=== PATIENT | female | born 1945 | race Caucasian/White ===

== ENCOUNTER 2017-04-17 23:05 | Inpatient (IN) | payer OTHER ==
[~2017-04-17] VITALS: Ht 170.2 cm; Wt 134.7 kg
--- NOTE | 2017-04-17 23:05 | NUR ---
BIBA TO ER BED 5
--- NOTE | 2017-04-17 23:10 | NUR ---
71 Y/O F BIBA FROM [facility] W/C/O AL SINCE THIS MORNING. BS 225 IN ROUTE. MED HX HTN, HYPERLIPEDEMIA, SEIZURES. PT ONLY RESPONSIVE TO PAINFUL STIMULI. SEIZURE PADS PUT IN PLACE. PT ARRIVED TO CLAREMONT WITH IV 22G TO LEFT AC. GAIT IS UNABLE TO ACCESS AT THE MOMENT. PT SKIN IS INTACT, WARM/DRY. ROX WATSON MADE AWARE. Addendum: 04/17/17 at 2352 by MEDND 71 Y/O F BIBA FROM [facility] W/C/O AL SINCE THIS MORNING. BS 225 IN ROUTE. MED HX HTN, HYPERLIPEDEMIA, SEIZURES. PT ONLY RESPONSIVE TO PAINFUL STIMULI. SEIZURE PADS PUT IN PLACE. PT ARRIVED TO CLAREMONT WITH IV 22G TO LEFT AC. GAIT IS UNABLE TO ACCESS AT THE MOMENT. PT SKIN IS INTACT, WARM/DRY. ROX WATSON MADE AWARE. [facility] ALSO STATES PT RECIEVED FLU VACCINE YESTERDAY.
[2017-04-17 23:11] VITALS: BP 109/60
--- NOTE | 2017-04-17 23:30 | NUR ---
# 16 FR Julien catheter with 10 ml utilizing sterile technique. Immediate return of 75 ml CLOUDY, YELLOW urine noted. Bedside drainage bag placed below level of bladder. Urine sample collected and sent to lab. Pt tolerated procedure WELL.
[2017-04-17] MEDS ORDERED: NACL 0.9% 500 ML IV ONE (23:50)
[2017-04-18 00:09] LABS: HEMATOCRIT 30.3 % (36-48); HEMOGLOBIN 9.6 g/dL (12.0-16.0); MEAN CORPUSCULAR HEMOGLOBIN 30 pg (27-31); MEAN CORPUSCULAR HGB CONC 32 g/dL (33-37); MEAN CORPUSCULAR VOLUME 93 fL (80-94); PLATELET COUNT (AUTO) 178 K/uL (140-450); RED BLOOD CELL COUNT(AUTO) 3.26 MIL/uL (4.20-5.40); RED CELL DISTRIBUTION WIDTH 13.2 % (11.6-13.7); WHITE BLOOD COUNT (AUTO) 14.5 K/uL (4.8-10.8)
[2017-04-18 00:16] LABS: APPEARANCE,URINE CLOUDY (CLEAR); BILIRUBIN,URINE NEGATIVE (NEGATIVE); BLOOD, URINE 1+ (NEGATIVE); COLOR,URINE YELLOW (YELLOW); LEUKOCYTE ESTERASE ,URINE 3+ (NEGATIVE); NITRITE, URINE NEGATIVE (NEGATIVE); PH,URINE 5.5 (5.0-9.0); UGLUCOSE NEGATIVE (NEGATIVE)
[2017-04-18 00:21] LABS: ANION GAP 12.3 (8-16); CARBON DIOXIDE 28.5 mmol/L (21-32); CHLORIDE 102 mmol/L (98-107); GLUCOSE 256 mg/dL (74-106); POTASSIUM 3.8 mmol/L (3.5-5.1); SODIUM SERUM 139 mmol/L (136-145); UREA NITROGEN, BLOOD 46 mg/dL (7-18)
[2017-04-18 00:25] LABS: LYMPHOCYTES % (MANUAL) 7 % (20-46); MONOCYTES % (MANUAL) 4 % (5-12)
[2017-04-18 00:29] LABS: PROTHROMBIN TIME 10.8 secs (10.8-13.4)
[2017-04-18 00:33] LABS: RBC,URINE 3-10 (FEW) /HPF (0-5); WBC,URINE TOO MANY TO COUNT /HPF (0-5)
[2017-04-18 00:34] LABS: HYALINE CASTS, URINE 0-10 /LPF (None Seen)
[2017-04-18 00:38] LABS: ASPARTATE AMINOTRANSFERASE 20 U/L (15-37); TOTAL BILIRUBIN 0.4 mg/dL (0.0-1.0)
[2017-04-18] MEDS ORDERED: LEVOFLOXACIN 500 MG/D5W PREMIX 100 ML IV ONE (01:05)
--- NOTE | 2017-04-18 02:30 | NUR ---
SON IN LAW IS AT BEDSIDE STATES PT FELL WHILE AT HOME 4 WEEKS AGO AND HIT HER HEAD. PT WAS PLACED AT [facility] FOR REHAB BUT OF YESTERDAY PT WAS TALKING NORMAL. SON IN LAW STATES SINCE HER FALL SHE HAS BEEN HESITANT TO WALK EVER SINCE FALL.
[2017-04-18] MEDS ORDERED: FURO-570 PO (03:34)
[2017-04-18] MEDS ORDERED: ASPI81CT89 PO (03:34)
[2017-04-18] MEDS ORDERED: AMLO10TA PO (03:34)
[2017-04-18] MEDS ORDERED: LACO100T PO (03:34)
[2017-04-18] MEDS ORDERED: LIP80 PO (03:34)
[2017-04-18] MEDS ORDERED: LACT1.4C PO (03:34)
[2017-04-18] MEDS ORDERED: MIC5 PO (03:34)
[2017-04-18] MEDS ORDERED: METF1TAB34 PO (03:34)
[2017-04-18] MEDS ORDERED: [UNRECOGNIZED DRUG - CODE] OP (03:34)
[2017-04-18] MEDS ORDERED: METO25TE2 PO (03:34)
[2017-04-18] MEDS ORDERED: BRIM5SOL3 OP (03:34)
[2017-04-18] MEDS ORDERED: POTA10TE30 PO (03:34)
[2017-04-18] MEDS ORDERED: ATEN50TA8 PO (03:34)
[2017-04-18] MEDS ORDERED: XALOS OP (03:34)
[2017-04-18] MEDS ORDERED: ZET10 PO (03:34)
[2017-04-18] MEDS ORDERED: LEVE1000 PO (03:34)
[2017-04-18] MEDS ORDERED: SITA100T8 PO (03:34)
[2017-04-18] MEDS ORDERED: CLIN150C1 PO (03:34)
[2017-04-18] MEDS ORDERED: DORZ10SO3 OP (03:34)
[2017-04-18] MEDS ORDERED: ALIS300T PO (03:34)
[2017-04-18] MEDS ORDERED: LEVO750T2 PO (03:34)
[2017-04-18] MEDS ORDERED: HYDR1TAB73 PO (03:34)
[2017-04-18] MEDS ORDERED: GABA300C PO (03:34)
--- NOTE | 2017-04-18 04:29 | NUR ---
Patient will be admitted to care of DR NEAL. Admited to TELE. Will go to room. Belongings list completed. Report to XENA MCKEON.
[2017-04-18] MEDS ORDERED: NACL 0.9% 1,000 ML IV SCH (04:33)
[2017-04-18 04:35] VITALS: BP 111/41
[2017-04-18] MEDS ORDERED: MORPHINE SULFATE 2 MG/ML SYR IVP PRN (04:35)
[2017-04-18] MEDS ORDERED: HYDROcodone/APAP 7.5/325 MG 1 TAB PO PRN (04:35)
[2017-04-18] MEDS ORDERED: ONDANSETRON 4 MG/2 ML VIAL IM/IVP PRN (04:35)
[2017-04-18] MEDS ORDERED: DOCUSATE SODIUM 100 MG GELCAP PO PRN (04:35)
--- NOTE | 2017-04-18 04:35 | NUR ---
PATIENT ADMITTED TO THE UNIT FROM ER. PATIENT BROUGHT IN BY MARS. AOX2. PATIENT RESPONSIVE TO PAIN STIMULI. SEIZURE GLASSES AND PRECAUTIONS IN PLACE. PT ON O2 2L VIA NC. SKIN IS INTACT. IV SITE NOTED ON LEFT UPPER CHEST AND LEFT ARM. MODI CATHETER IN PLACE. WILL CONTINUE TO MONITOR.
[2017-04-18] MEDS ORDERED: MECLIZINE 25 MG TAB PO PRN (04:40)
[2017-04-18] MEDS ORDERED: DEXTROSE 50% 50 ML SYR IVP PRN (04:55)
[2017-04-18 05:21] LABS: BARBITURATE, URINE NEG. ng/ml (NEG <=200); BENZODIAZEPINE, URINE NEG. ng/mL (NEG <=200); CANNABINOID, URINE NEG. ng/mL (NEG <=50); COCAINE, URINE NEG. ng/mL (NEG <=300); OPIATE, URINE NEG. ng/mL (NEG <=2000); PHENCYCLIDINE SCREEN,URINE NEG. ng/mL (NEG <=25)
[2017-04-18 05:30] LABS: CHOL/HDL RATIO 2.4 (1-4.5); FREE T4 (FREE THYROXINE) 1.09 ng/dL (0.76-1.46); MAGNESIUM 1.7 mg/dL (1.8-2.4); PHOSPHORUS 4.1 mg/dL (2.5-4.9); THYROID STIMULATING HORMONE 1.52 uIU/mL (0.34-3.74)
[2017-04-18] MEDS: BLOOD GLUCOSE MONITORING 1 DEV DEV FS SCH ×4 (06:42→20:12)
[2017-04-18] MEDS: INSULIN LISPRO SLIDING SCALE 100 UNITS/ML VIAL SUBQ PRN (06:42)
[2017-04-18] MEDS: ACETAMINOPHEN 325 MG TAB PO PRN ×2 (06:50→13:26)
[2017-04-18] MEDS ORDERED: DEXT 5% / NACL 0.45% 1,000 ML IV SCH (07:30)
--- NOTE | 2017-04-18 07:32 | NUR ---
REPORT RECEIVED FROM GAS ENGINE PERFORMANCE ENGINEER, PT SLEEPING QUIETLY IN NAD WEARING DARK SZ GLASSES, RESP EVEN UNLABORED ON 2L O2, PT AROUSES TO VOICE, NO C/O PAIN OR DISCOMFORT AT THIS TIME, PLAN OF CARE REVIEWED, INITIAL ASSESSMENT DONE, SZ PRECAUTION IN PLACE, CALL LUQUE WITHIN REACH, SIDE RAILS UP, BED LOCKED IN LOW POSITION, WILL CONTINUE TO MONITOR.
--- NOTE | 2017-04-18 07:38 | NUR ---
PATIENT REPORT GIVEN TO MORNING NURSE. PATIENT IN STABLE CONDITION
[2017-04-18 08:00] VITALS: BP 98/50
--- NOTE | 2017-04-18 08:02 | NUR ---
MD AT BEDSIDE, PT NOW NPO X MEDS. BREAKFAST TRAY REMOVED.
--- NOTE | 2017-04-18 08:18 | NUR ---
US AT BEDSIDE.
[2017-04-18] MEDS: DEXT 5% /NACL 0.9% 1,000 ML IV SCH ×3 (09:05→20:06)
[2017-04-18] MEDS: LACTOBACILLUS RHAMNOSUS GG 1 EACH CAP PO SCH (09:05)
--- NOTE | 2017-04-18 09:13 | NUR ---
DR TESFAYE AT BEDSIDE FOR EVAL, PT SLEEPY BUT AROUSABLE, SPEAKS SLOWLY, RESPONDS APPROPRIATELY TO QUESTIONS, IVF INFUSING, IV SITE CLEAR, IFV CHANGED TO D5NS. WILL CONTINUE TO MONITOR.
[2017-04-18] MEDS ORDERED: levETIRAcetam 1,000 MG in NACL 0.9% 100 ML IV SCH (10:00)
[2017-04-18] MEDS ORDERED: ASPIRIN 81 MG TAB.CHEW PO SCH (10:18)
[2017-04-18] MEDS ORDERED: ATORVASTATIN 80 MG TAB PO SCH (10:19)
[2017-04-18] MEDS ORDERED: EZETIMIBE 10 MG TAB PO SCH (10:21)
[2017-04-18 12:00] VITALS: BP 132/58
--- NOTE | 2017-04-18 13:20 | NUR ---
GOD SON AT BEDSIDE VISITING, HOME MEDICATION BROUGHT IN, WILL TURN IN TO PHARMACY
[2017-04-18] MEDS: GABAPENTIN 300 MG CAP PO SCH ×2 (13:27→16:43)
--- NOTE | 2017-04-18 13:31 | NUR ---
DUE MEDS GIVEN, PRN TYLENOL GIVEN FOR TEMP 100.2, PT TAKES PILLS WELL, NO COUGHING OR TROUBLE SWALLOWING NOTED, MD AWARE OF TEMP 100.2. PT REMAINS ON DECORATOR STREET AND BUILDING, RESP EVEN UNLABORED, CAMILLA CONTINUE TO MONTIOR.
[2017-04-18] MEDS ORDERED: NON-FORMULARY ITEM (Lacosamide (Vimpat) 100 MG) PO SCH (13:40)
--- NOTE | 2017-04-18 14:07 | NUR ---
04/18/17 RD INITIAL ASSESSMENT COMPLETED PLEASE REFER TO NUTRITION ASSESSMENT UNDER CARE ACTIVITY FOR ESTIMATED NUTRITIONAL NEEDS. 1. WHEN MEDICALLY FEASIBLE, INITIATE PO DIET - ADVANCE TOLERATED TO 75G CONSISTENT CARBOHYDRATE DIET 2. RD TO FOLLOW-UP 2-3 DAYS, HIGH RISK VEENA MORENO, LOPEZ
[2017-04-18] MEDS ORDERED: HYDR1TAB PO (14:20)
[2017-04-18] MEDS ORDERED: MAG SULF 2000 MG/WATER PREMIX 50 ML IV SCH (15:00)
--- NOTE | 2017-04-18 15:30 | NUR ---
BM X1, SOFT STOOL, PERICARE DONE, LINEN CHANGED, GOWN CHANGED, POSITION CHANGED, PT RAFFAELE WELL, WILL CONTINUE TO MONITOR.
[2017-04-18 16:00] VITALS: BP 110/56
--- NOTE | 2017-04-18 16:40 | NUR ---
BLOOD SUGAR 132, NO INSULIN NEEDED, TEMP 100.0, TYLENOL GIVEN AT 1326, ICE PACK APPLIED TO UNDER ARMS A THIS TIME, PT SLEEPING BUT AROUSES EASILY TO VOICE, RAFFAELE DUE MEDS PO WITHOUT PROBLEM, DENIES PAIN OR DISCOMFORT, WILL CONTINUE TO MONITOR.
[2017-04-18] MEDS: FERROUS SULFATE 325 MG TABEC PO SCH (16:43)
[2017-04-18] MEDS ORDERED: BRIMONIDINE TARTRATE OP SCH (17:00)
[2017-04-18] MEDS: ALPHAGAN 0.1% OP SCH (17:31)
[2017-04-18] MEDS: EYE OP SCH (17:31)
--- NOTE | 2017-04-18 18:15 | NUR ---
PT RESTING QUIETLY IN NAD, RESP EVEN UNLABORED ON 2L NC, SKIN WARM DRY COLOR WNL, PT DENIES ANY PAIN OR DISCOMFORT, MODI INTACT, DRAINING WELL, IVF INFUSING TO 22G LEFT UPPER CHEST, PT REMAINS ON TELE, SZ PRECAUTIONS IN PLACE, CALL LUQUE WITHIN REACH, SIDE RAILS UP X2, BED LOCKED IN LOW POSITION, WILL CONTINUE TO MONITOR.
--- NOTE | 2017-04-18 19:24 | NUR ---
REPORT GIVEN TO FREIGHT CAR INSPECTOR NURSE. PATIENT IN STABLE CONDITION.
--- NOTE | 2017-04-18 19:25 | NUR ---
RECEIVED PATIENT REPORT AT BEDSIDE FROM MORNING NURSE. PATIENT IS ASLEEP IN BED. NO SIGNS AND SYMPTOMS OF DISTRESS NOTED. SEIZURE GLASSES AND SEIZURE PRECAUTION PADS IN PLACE. PATIENT ON O2 2L VIA NC. PATIENT AROUSES TO LIGHT PAIN. MODI CATHETER IN PLACE. BED IN LOWEST POSITION, SIDE RAILS UP AND CALL LUQUE WITHIN REACH, WILL CONTINUE TO MONITOR.
[2017-04-18 20:00] VITALS: BP 131/65
[2017-04-18] MEDS: levETIRAcetam 1,000 MG in NACL 0.9% 100 ML IV SCH (20:34)
[2017-04-18] MEDS: LATANOPROST 0.005% OP 2.5 ML BTL OP SCH (20:41)
[2017-04-18] MEDS: TIMOLOL OP SCH (20:41)
[2017-04-18] MEDS: DORZOLAMIDE OP SCH (20:41)
[2017-04-18] MEDS: LACOSAMIDE 100 MG TAB PO SCH (21:00)
[2017-04-18] MEDS ORDERED: NON-FORMULARY ITEM (Dorzolamide HCl/Timolol Maleat (Cosopt Eye Drops) 1 DROP) OP SCH (21:00)
--- NOTE | 2017-04-18 21:00 | NUR ---
MEDICATION LACOSAMIDE NOT GIVEN AT 2100. MEDICATION NOT AVAILABLE, EQUIPMENT RECORDS SUPERVISOR NOTIFIED.
--- NOTE | 2017-04-18 22:00 | NUR ---
CHECKED ON PATIENT, PATIENT IS ASLEEP IN BED. NO SIGNS AND SYMPTOMS OF DISTRESS NOTED. AROUSABLE TO LIGHT PAIN. BREATHE EVEN AND UNLABORED. BED IN LOWEST POSITION, SIDE RAILS UP AND CALL LIGHT WITHIN REACH.
[2017-04-19] VITALS (9 sets, daily range): BP systolic 81–123; BP diastolic 38–69
[2017-04-19] MEDS: DEXT 5% /NACL 0.9% 1,000 ML IV SCH (01:21)
--- NOTE | 2017-04-19 03:00 | NUR ---
CHECKED ON PATIENTS CATHETER. NOTICED THAT THERE WAS 75ML URINE IN THE BAG. NOTIFIED DR. RODRIGUEZ, ORDERS RECEIVED.
--- NOTE | 2017-04-19 04:02 | NUR ---
BLADDER SCAN DONE. SHOWED URINE VOLUME OF 52ML. NOTIFIED DR. RODRIGUEZ
[2017-04-19] MEDS: levETIRAcetam 1,000 MG in NACL 0.9% 100 ML IV SCH ×2 (04:21→22:15)
[2017-04-19] MEDS: ACETAMINOPHEN 325 MG TAB PO PRN ×3 (04:24→16:17)
[2017-04-19 06:03] LABS: HEMATOCRIT 23.9 % (36-48); HEMOGLOBIN 7.8 g/dL (12.0-16.0); MEAN CORPUSCULAR HEMOGLOBIN 31 pg (27-31); MEAN CORPUSCULAR HGB CONC 33 g/dL (33-37); MEAN CORPUSCULAR VOLUME 94 fL (80-94); PLATELET COUNT (AUTO) 148 K/uL (140-450); RED BLOOD CELL COUNT(AUTO) 2.55 MIL/uL (4.20-5.40); RED CELL DISTRIBUTION WIDTH 13.2 % (11.6-13.7); WHITE BLOOD COUNT (AUTO) 11.2 K/uL (4.8-10.8)
[2017-04-19 06:15] LABS: T4 (THYROXINE) 7.1 ug/dL (4.5-12.0)
[2017-04-19] MEDS: INSULIN LISPRO SLIDING SCALE 100 UNITS/ML VIAL SUBQ PRN ×2 (06:30→13:13)
[2017-04-19] MEDS: BLOOD GLUCOSE MONITORING 1 DEV DEV FS SCH ×4 (06:31→21:00)
[2017-04-19 06:48] LABS: ANION GAP 13.9 (8-16); CARBON DIOXIDE 24.7 mmol/L (21-32); CHLORIDE 106 mmol/L (98-107); CREATININE 2.7 mg/dL (0.6-1.3); GLUCOSE 233 mg/dL (74-106); POTASSIUM 3.6 mmol/L (3.5-5.1); SODIUM SERUM 141 mmol/L (136-145); UREA NITROGEN, BLOOD 52 mg/dL (7-18)
[2017-04-19 07:17] LABS: MAGNESIUM 2.2 mg/dL (1.8-2.4); PHOSPHORUS 3.8 mg/dL (2.5-4.9)
--- NOTE | 2017-04-19 07:25 | NUR ---
PATIENT REPORT GIVEN TO MORNING NURSE. PATIENT IN STABLE CONDITION
--- NOTE | 2017-04-19 07:26 | NUR ---
REPORT RECEIVED FROM BURLING AND JOINING SUPERVISOR NURSE, PT RESTING QUIETLY IN NAD, RESP EVEN UNLABORED ON 2L NC O2, SPEAKS CLEARLY, ORIENTED TO HERSELF ONLY, DENIES PAIN OR DISCOMFORT, MODI DRAINING YELLOW URINE, SLIGHT TREMORS NOTED IN UPPER EXT, PT STATES "I HAVE THE SHIVERS", NO SZ ACTIVITY NOTED, PLAN OF CARE REVIEWED, NO IMMEDIATE NEEDS IDENTIFIED, DR TESFAYE MADE AWARE OF DECREASED URINE OUT PUT OVER NIGTH AND ELEVATED BLOOD SUGAR 231 THIS AM AND PT IS RECEIVING D5NS AT 175ML/HR, ORDER TO BE CHANGED PER DR TESFAYE. PT REMAINS ON VISUAL BASIC .NET DEVELOPER, SZ PRECAUTIONS IN PLACE, CALL LUQUE WITHIN REACH, SIDE RAILS UP X2, BED LOCKED IN LOW POSITION.
[2017-04-19 07:52] LABS: LYMPHOCYTES % (MANUAL) 11 % (20-46); MONOCYTES % (MANUAL) 6 % (5-12)
[2017-04-19] MEDS: VALSARTAN PO SCH (08:30)
[2017-04-19] MEDS: [UNRECOGNIZED DRUG - OTHER] PO SCH (08:30)
[2017-04-19] MEDS: FUROSEMIDE 40 MG TAB PO SCH (08:31)
[2017-04-19] MEDS: POTASSIUM CHLORIDE 10 MEQ TABER PO SCH (08:31)
[2017-04-19] MEDS: FERROUS SULFATE 325 MG TABEC PO SCH ×2 (08:31→16:16)
[2017-04-19] MEDS: ATORVASTATIN 80 MG TAB PO SCH (08:31)
[2017-04-19] MEDS: LACTOBACILLUS RHAMNOSUS GG 1 EACH CAP PO SCH (08:31)
[2017-04-19] MEDS: ASPIRIN 81 MG TAB.CHEW PO SCH (08:32)
[2017-04-19] MEDS: EZETIMIBE 10 MG TAB PO SCH (08:32)
[2017-04-19] MEDS: GABAPENTIN 300 MG CAP PO SCH ×3 (08:32→16:16)
[2017-04-19] MEDS: ALPHAGAN 0.1% OP SCH ×4 (08:34→22:19)
[2017-04-19] MEDS: DORZOLAMIDE OP SCH ×2 (08:34→21:00)
[2017-04-19] MEDS: TIMOLOL OP SCH ×2 (08:34→21:00)
[2017-04-19] MEDS: EYE OP SCH ×4 (08:34→22:19)
[2017-04-19] MEDS: LACOSAMIDE 100 MG TAB PO SCH ×2 (08:35→22:07)
[2017-04-19] MEDS: TEKTURNA 300 MG PO SCH (08:36)
[2017-04-19] MEDS: amLODIPine 5 MG TAB PO SCH (08:36)
--- NOTE | 2017-04-19 08:45 | NUR ---
DR ARREAGA AT BEDSIDE.
[2017-04-19] MEDS ORDERED: VALSARTAN PO SCH ×2 (09:00)
[2017-04-19] MEDS ORDERED: ALISKIREN HEMIFUMARATE 300 MG PO SCH (09:00)
[2017-04-19] MEDS: ATENOLOL 50 MG TAB PO SCH (09:00)
[2017-04-19] MEDS ORDERED: HYDROCHLOROTHIAZIDE PO SCH ×2 (09:00)
[2017-04-19] MEDS: NACL 0.9% 1,000 ML IV SCH ×3 (09:04→22:03)
--- NOTE | 2017-04-19 10:38 | NUR ---
TYLENOL GIVEN FOR TEMP 103.2, PT TOOK PILLS WITHOUT PROBLEM, DRINKING WATER WITHOUT PROBLEM, NO COUGHING OR SWALLOWING DIFFICULTY NOTED. DR TESFAYE NOTIFIED OF TEMP.
--- NOTE | 2017-04-19 12:30 | NUR ---
BLOOD PRESSURE 81/38, PT AWAKE SPEAKS APPROPRIATELY, APPEARS IN NAD, DR TESFAYE NOTIFED, WILL START IV BOLUS.
[2017-04-19] MEDS ORDERED: NACL 0.9% 1,000 ML IV ONE (13:10)
--- NOTE | 2017-04-19 14:30 | NUR ---
PT'Linda ABURTO AT BEDSIDE, DR TESFAYE AT BEDSIDE, PLAN OF CARE DISCUSSED, BP NOW 94/50, BOLUS CONTINUES, IV SITE CLEAR, RE-SECURED, WILL CONTINUE TO MONITOR.
--- NOTE | 2017-04-19 14:45 | NUR ---
GRACIE FERREIRA CONSENTED BY DR TESFAYE FOR CENTRAL LINE INSERTION IN CASE PT NEEDS A CENTRAL LINE ACCESS AT LATER TIME, FORM SIGNED AND IN THE CHART.
[2017-04-19] MEDS ORDERED: NACL 0.9% 1,000 ML IV SCH (15:30)
--- NOTE | 2017-04-19 16:12 | NUR ---
PERICARE DONE, POSITION CHANGED, PT RAFFAELE WELL.
--- NOTE | 2017-04-19 16:55 | NUR ---
PT RESTING QUIETLY IN NAD, RESP EVEN UNLABORED, SKIN WARM DRY COLOR WNL, PT STATES "I'M WATCHING TV", BLOOD SUGAR 122 AT THIS TIME, NO INSULIN NEEDED, PT REMAINS ON FOOD SERVICE AGENT, DENIES PAIN OR DISCOMFORT, CALL LUQUE WITHIN REACH, SIDE RAILS UP X2, BED LOCKED IN LOW POSITION, WILL CONTINUE TO MONITOR.
--- NOTE | 2017-04-19 18:02 | NUR ---
PT SITTING UP EATING DINNER WITH ASSIST, PT INSISTS "I CAN FEED MYSELF" BUT REQUIRES ASSIST, RESP EVEN UNLABORED, SKIN WARM DRY COLOR WNL, IVF INFUSING WELL, SITE CLEAR, WILL CONTINUE TO MOTNIOR.
--- NOTE | 2017-04-19 19:32 | NUR ---
REPORT GIVEN TO PASTORA BUENO. PT IN STABLE CONDITION.
--- NOTE | 2017-04-19 19:33 | NUR ---
RECEIVED PT FROM ANA RN PT AOX1 CONFUSED, MORBID OBESITY ON 02 2 LTS VIA NC, ON TELEMETRY ST HL ON LEFT AC PATENT AND IV ON LEFT UPPER CHEST INFUSING WELL IV FLUIDS, MODI CATH DRAINING WELL YELLOW URINE REPOSITIONED INITIAL ASSESSMENT DONE
[2017-04-19] MEDS ORDERED: LEVOFLOXACIN 750 MG/D5W PREMIX 150 ML IV SCH (21:00)
[2017-04-19] MEDS: LATANOPROST 0.005% OP 2.5 ML BTL OP SCH (21:00)
--- NOTE | 2017-04-19 21:30 | NUR ---
BLOOD SUGAR TEST 149 NOT COVERAGE
[2017-04-20] VITALS (22 sets, daily range): BP systolic 65–115; BP diastolic 33–97
--- NOTE | 2017-04-20 | NUR ---
PT REPOSITIONED IV ON LEFT AC PT REMOVED IV ON LEFT UPPER CHEST, ON TELEMETRY ST NOT DISTRESS NOTED NOT FEVER
[2017-04-20] MEDS: NACL 0.9% 1,000 ML IV SCH ×5 (01:34→17:35)
--- NOTE | 2017-04-20 02:00 | NUR ---
PT PULL OUT IV ON LEFT UPPER CHEST BUT PT ALREADY HAS A HL ON LEFT AC AND IS INFUSING WELL THE IV NOW
--- NOTE | 2017-04-20 04:00 | NUR ---
SPONGE BATH GIVEN LINEN CHANGED REPOSITIONED Q2H ON TELMETRY SR
[2017-04-20] MEDS: BLOOD GLUCOSE MONITORING 1 DEV DEV FS SCH ×4 (06:12→21:13)
[2017-04-20] MEDS: INSULIN LISPRO SLIDING SCALE 100 UNITS/ML VIAL SUBQ PRN ×3 (06:16→17:44)
--- NOTE | 2017-04-20 06:24 | NUR ---
BLOOD SUGAR TESDT 173 COVERAGE WITH 2 UNITS SUBQ HUMALOG ORDER
--- NOTE | 2017-04-20 07:20 | NUR ---
RECEIVED REPORT FROM THE STAFFING RECRUITER NURSE AT BEDSIDE FOR CONTINUITY OF CARE. PT HAS HER EYES CLOSED BUT IS AWAKE AND ANSWERS SIMPLE QUESTIONS AND FOLLOWS COMMANDS. INTRODUCED MYSELF AND UPDATED THE BOARDS. PT V/S IS WITHIN NORMAL RANGE. PT IS ON BEDREST. SKIN IS INTACT. MODI CATH IN PLACE. SHE'S NOT WEARING HER NC. IV ON L AC 22G NS INFUSING. PT'S WBC IS ELEVATE THIS MORNING 15.9. WILL NOTIFY MD. ORDER FOR CONSENT FOR CENTRAL LINE. WILL SEE IF STAFFING RECRUITER GOT ONE IF NOT WILL GET TODAY. DENIES PAIN. NO COMPLAINTS AT THIS TIME. WILL CONTINUE TO MONITOR PT.
[2017-04-20 07:21] LABS: HEMATOCRIT 27.5 % (36-48); MEAN CORPUSCULAR HEMOGLOBIN 30 pg (27-31); MEAN CORPUSCULAR HGB CONC 33 g/dL (33-37); MEAN CORPUSCULAR VOLUME 93 fL (80-94); PLATELET COUNT (AUTO) 195 K/uL (140-450); RED BLOOD CELL COUNT(AUTO) 2.98 MIL/uL (4.20-5.40); RED CELL DISTRIBUTION WIDTH 13.1 % (11.6-13.7); WHITE BLOOD COUNT (AUTO) 15.9 K/uL (4.8-10.8)
[2017-04-20 07:25] LABS: ANION GAP 15.2 (8-16); CARBON DIOXIDE 21.7 mmol/L (21-32); CHLORIDE 108 mmol/L (98-107); CREATININE 2.7 mg/dL (0.6-1.3); GLUCOSE 185 mg/dL (74-106); POTASSIUM 3.9 mmol/L (3.5-5.1); SODIUM SERUM 141 mmol/L (136-145); UREA NITROGEN, BLOOD 58 mg/dL (7-18)
[2017-04-20 07:29] LABS: PHOSPHORUS 3.3 mg/dL (2.5-4.9)
[2017-04-20 07:43] LABS: LYMPHOCYTES % (MANUAL) 6 % (20-46); MONOCYTES % (MANUAL) 7 % (5-12)
[2017-04-20] MEDS: LACTOBACILLUS RHAMNOSUS GG 1 EACH CAP PO SCH (08:54)
[2017-04-20] MEDS: GABAPENTIN 300 MG CAP PO SCH ×4 (08:54→17:34)
[2017-04-20] MEDS: glyBURIDE 5 MG TAB PO SCH (08:54)
[2017-04-20] MEDS: FERROUS SULFATE 325 MG TABEC PO SCH ×3 (08:55→17:34)
[2017-04-20] MEDS: FUROSEMIDE 40 MG TAB PO SCH (08:55)
[2017-04-20] MEDS: ASPIRIN 81 MG TAB.CHEW PO SCH (08:55)
[2017-04-20] MEDS: ATORVASTATIN 80 MG TAB PO SCH (08:55)
[2017-04-20] MEDS: EZETIMIBE 10 MG TAB PO SCH (08:56)
[2017-04-20] MEDS: POTASSIUM CHLORIDE 10 MEQ TABER PO SCH (08:56)
[2017-04-20] MEDS: [UNRECOGNIZED DRUG - OTHER] PO SCH ×2 (08:58→09:00)
[2017-04-20] MEDS: VALSARTAN PO SCH ×2 (08:58→09:00)
[2017-04-20] MEDS: TEKTURNA 300 MG PO SCH (08:59)
[2017-04-20] MEDS: LACOSAMIDE 100 MG TAB PO SCH ×2 (09:00→21:00)
[2017-04-20] MEDS: amLODIPine 5 MG TAB PO SCH (09:00)
[2017-04-20] MEDS ORDERED: PIOGLITAZONE HCL PO SCH (09:00)
[2017-04-20] MEDS ORDERED: CLINICAL MONITORING MC SCH (09:00)
[2017-04-20] MEDS ORDERED: METFORMIN HCL PO SCH (09:00)
[2017-04-20] MEDS ORDERED: [UNRECOGNIZED DRUG - OTHER] PO SCH (09:00)
[2017-04-20] MEDS: ATENOLOL 50 MG TAB PO SCH (09:00)
[2017-04-20] MEDS: DORZOLAMIDE OP SCH ×2 (09:02→21:36)
[2017-04-20] MEDS: TIMOLOL OP SCH ×2 (09:02→21:36)
[2017-04-20] MEDS: levETIRAcetam 1,000 MG in NACL 0.9% 100 ML IV SCH ×2 (09:04→21:15)
--- NOTE | 2017-04-20 09:10 | NUR ---
ADMINISTERED MORNING MEDS AND ABX AND NEW NS FLUIDS. PT TOLERATED WELL. STILL EYES CLOSED BUT ANSWERS TO SIMPLE QUESTIONS AND OBEYS SIMPLE COMMANDS. WILL CONTINUE TO MONITOR PT.
--- NOTE | 2017-04-20 10:46 | NUR ---
04/20/17 RD FOLLOW UP COMPLETED PLEASE REFER TO NUTRITION PROGRESS NOTES UNDER CARE ACTIVITY FOR ESTIMATED NUTRITIONAL NEEDS. RD RECOMMENDATIONS: 1. RECOMMEND CONTINUE CURRENT DIET 60G CCHO. 2. SUPPLEMENT DIET WITH DIET HEALTHSHAKES TID (TO HELP INCREASE CALORIE & PROTEIN INTAKE / MEET GOALS) 3. RD TO FOLLOW-UP IN 2-3 DAYS, HIGH RISK MARYBEL DALLAS MBA, RD
--- NOTE | 2017-04-20 11:30 | NUR ---
FAMILY HERE, ASKING QUESTIONS ABOUT HER CONDITION. WONDERING WHY SHE IS SO OUT OF IT. PRIOR TO HOSPITALIZATION, PT WAS AMBULATING AND VERBAL. SO OUT OF IT. EXPLAINED TO FAMILY, IT CAN BE DUE TO THE INFECTION. WE ARE GIVING HER ABX. WILL GET RESIDENT MD TO GO TO ROOM AND TALK TO FAMILY. WILL CONTINUE TO MONITOR.
[2017-04-20] MEDS ORDERED: NACL 0.9% 1,000 ML IV SCH ×2 (12:00→14:35)
[2017-04-20] MEDS ORDERED: CLINICAL MONITORING MC PRN (12:36)
[2017-04-20] MEDS: ALPHAGAN 0.1% OP SCH ×2 (13:26→17:35)
[2017-04-20] MEDS: EYE OP SCH ×2 (13:26→17:35)
--- NOTE | 2017-04-20 13:27 | NUR ---
ADMINISTERED EYE DROPS AND GABAPENTIN AND INSULIN. PT TOLERATED WELL. SHE HAD A BM. WILL HAVE FAMILY MEDIATOR CHANGE PT.
[2017-04-20] MEDS ORDERED: NOREPINEPHRINE 4 MG in DEXTROSE 5% 250 ML IV PRN (14:20)
--- NOTE | 2017-04-20 14:20 | NUR ---
ORDERED TRANSFER TO ICU. BRITTANY CHARGE NURSE NOTIFIED. CALLED OVER TO ICU. NO NURSE AVAILABLE AT THIS TIME. WILL LET US KNOW WHEN OK TO TRANSFER.
--- NOTE | 2017-04-20 14:36 | NUR ---
BP LOW, RESIDENT MD ORDERED ANOTHER BOLUS OF NS. PT IN TRENDELENBERG. BP 91/37. AFTER ANOTHER BOLUS, WILL CHECK BP AGAIN.
--- NOTE | 2017-04-20 15:00 | NUR ---
BP 102/38. STILL 1/2 BAG NS LEFT. INFUSING BOLUS. PT STILL IN TRENDELENBERG. WILL CONTINUE TO MONITOR PT.
[2017-04-20] MEDS ORDERED: HYDROmorphone 1 MG/ML AMP IVP SCH (15:50)
--- NOTE | 2017-04-20 16:16 | NUR ---
RESIDENT DR. PAGAN, DR PORTILLO, [facility] IN POSITION FOR INSERTION OF CENTRAL LINE. STUDENT RN WATCHING ON SIDELINE. O2 SAT 91 AND HOLDING. HR 88 SR ON MONITOR. TIME OUT SHEET REVIEWED PRIOR TO THE PROCEDURE. ALL IN AGREEMENT. DILAUDID 0.5MG WAS GIVEN PRIOR TO PROCEDURE.
--- NOTE | 2017-04-20 17:46 | NUR ---
UNABLE TO KEEP PT AWAKE LONG ENOUGH TO GIVE MEDS. WASTED.
--- NOTE | 2017-04-20 17:50 | NUR ---
GAVE REPORT TO TEACHER PHYSICALLY IMPAIRED, NEETU. SHE STILL HASN'T TRANSFERRED THE TELE PT. WILL BRING PT AND TAKE THIS PT.
--- NOTE | 2017-04-20 19:00 | NUR ---
TRANSPORTED PT TO ICU WITH 2 OTHERS. RECEIVED BY REFRACTORY SPECIALIST, NEETU. PT TOLERATED WELL. ALL PERSONAL BELONGINGS AND CHART TAKEN OVER.
--- NOTE | 2017-04-20 19:40 | NUR ---
Received patient from floor at 1900, assist x 4 persons to transfer. obtunded, moved right arm slightly when spoken to but did not open eyes, pupils equal and sluggish. respirations deep with prolonged expiratory phase, pursed lips, oxygen level 93 on 2L/NC. right IJ TL central line in place. Julien cath with scant amount of dark nikita urine in bag. incontinent of stool. SBP 96, see vitals flowsheet. Resident physician at bedside briefly, requested ABG. security shift manager charge nurse at bedside, brief report given. Report given to primary shift superintendent caustic cresylate nurse
--- NOTE | 2017-04-20 19:48 | NUR ---
REPORT RECEIVED FROM MORNING NURSE, NEETU, RN AT BED SIDE. PER MORNING NURSE, PT WAS IN TELEMETRY AND BECAME HYPOTENSIVE AND TACHYCARDIC WITH INCREASED LETHARGY. THEREFORE PT WAS TRANSFERRED TO ICU FOR CLOSER MONITORING. PT EYES CLOSED AND UNABLE TO FOLLOW COMMANDS. BILATERAL PERRL. BILATERAL LUNG SOUNDS CLEAR WITH DEEP RESPIRATIONS. MODI CATHETER DRAINING LANDON COLOR ABOUT 5ML IN THE BAG. BP NOTED STILL LOW 84/50 AND HR 97. SINUS RHYTHM. BOWEL SOUNDS HEARD FROM ALL 4 QUADS. CENTRAL LINE TO RIGHT IJ WITH TRIPLE LUMEN AND LEFT AC #22 PERIPHERAL LINE NOTED. ALL PATENT AND ASYMPTOMATIC. DR. RODRIGUEZ IN THE UNIT AND MADE AWARE OF PT'S CONDITION. WILL CONTINUE TO MONITOR CLOSELY.
--- NOTE | 2017-04-20 19:49 | NUR ---
TALKED TO DR. BRITTON MADE AWARE BP 84/50, SAID JUST START THE LEVEOPHED AND CONTINUE WITH NS AT 70ML, MD AWARE NO URINE OUTPUT AT THIS TIME, PT LETHARGIC,
--- NOTE | 2017-04-20 19:51 | NUR ---
RT AT BEDSIDE
--- NOTE | 2017-04-20 20:00 | NUR ---
PT HAD LOOSE STOOL. PROVIDED INCONTINENCE CARE. NOTED WITH SCATTERED SMALL PURPLISH DISCOLORATION ON THE EXTREMITIES MAINLY IN THE RIGHT UPPER ARM. PT TAKING ANTICOAGULATION. DENIES ANY PAIN OR DISCOMFORT.
[2017-04-20] MEDS ORDERED: NOREPINEPHRINE 4 MG/4 ML VIAL IV ONE (20:11)
--- NOTE | 2017-04-20 20:11 | NUR ---
LEVOPHED DRIP STARTED ORDERED DUE TO LOW BP. WILL CONTINUE TO MONITOR.
--- NOTE | 2017-04-20 20:15 | NUR ---
WE WERE UNABLE TO OBTAIN BLOOD GAS, DUE TO BP LOW, AND AFTER COUPLE TRY WE GOT VENOUS 7.221, 39.6, PO2 33.1, HCO3 15.9, BE -11
--- NOTE | 2017-04-20 20:21 | NUR ---
RT TALKING TO DR. BRITTON
--- NOTE | 2017-04-20 20:30 | NUR ---
LATEST BP 94/71, PT ABLE TO MOVE HER RIGHT HAND ,ON O2 AT 3L/MIN WELL TOLERATED ONGOING WITH LEVOPHED AT 5MCG/MIN PER DR. LOCKHART KEEP IVF AT 70ML/HR
--- NOTE | 2017-04-20 21:04 | NUR ---
RT EARL MADE AWARE OF LATEST BP, 107/69 TO PERFORM ARTERIAL ABG.
[2017-04-20] MEDS ORDERED: levETIRAcetam 100 MG/ML VIAL IV ONE (21:11)
[2017-04-20] MEDS: LATANOPROST 0.005% OP 2.5 ML BTL OP SCH (21:37)
--- NOTE | 2017-04-20 21:58 | NUR ---
TALKED TO DR. BRITTON MADE AWARE UNABLE TO GIVE LACOSAMIDE PT LETHARGIC SAID OK NOT TO GIVE.
--- NOTE | 2017-04-20 22:15 | NUR ---
INFORMED DR. CHAVEZ PT BP, NO ORDER AT THIS TIME.
--- NOTE | 2017-04-20 23:29 | NUR ---
INFORMED MD PT HAS LOOSE STOOL, BLACK IN COLOR, MODERATE IN AMOUNT, FOUL ODOR, MD ALSO AWARE PT ON LEVOPHED 30 MCG/MIN, PT ABLE TO ANSWER WHEN HER NAME CALLED, PT EYES CLOSE, WILL CHECK PT FREQUENTLY
[2017-04-20] MEDS ORDERED: VASOPRESSIN 20 UNITS in NACL 0.9% 250 ML IV SCH (23:30)
--- NOTE | 2017-04-20 23:55 | NUR ---
PT CLAIMED CAN I HAVE ORANGE JUICE, PT EYES OPEN, ASKED WHEN IS HER BIRTHDAY, PT ABLE TO SAY THE MONTH AND DATE,BP STILL LOW WILL UPDATE MD,
[2017-04-21] VITALS (63 sets, daily range): BP systolic 25–141; BP diastolic 13–82
--- NOTE | 2017-04-21 00:11 | NUR ---
PT REMOVING HER BLANKET CLAIMED I NEED TO GO TO THE BATHROOM, EXPLAINED TO PT, NURSE WILL CLEAN HER UP, NOTED BLACK FOUL ODOR STOOL .
[2017-04-21] MEDS ORDERED: LEVOFLOXACIN 250 MG/D5 PREMIX 50 ML IV ONE (00:12)
--- NOTE | 2017-04-21 00:15 | NUR ---
LEVAQUIN IV 250MG STARTED AT THIS TIME
[2017-04-21] MEDS ORDERED: NOREPINEPHRINE 4 MG/4 ML VIAL IV ONE ×5 (00:18→07:43)
[2017-04-21] MEDS ORDERED: LEVOFLOXACIN 250 MG/D5 PREMIX 50 ML IV SCH ×2 (00:20→21:00)
--- NOTE | 2017-04-21 00:22 | NUR ---
INFORM DR. BRUCE , BP 54/29, MD ALSO AWARE PT HAS A BIG LOOSE STOOL BM, ASK MD IF HE WANTS TO ORDER ANOTHER ANTIBIOTIC, WILL COLLECT STOOL PER MD ORDER, MD ALSO AWARE PT WITH EPISODES OF PREMATURE ATRIAL CONTRACTION
[2017-04-21] MEDS ORDERED: PHENYLEPHRINE 10 MG/ML VIAL ONE ×4 (00:41→07:25)
[2017-04-21] MEDS: metroNIDAZOLE 500 MG/NS PREMIX 100 ML IV SCH ×4 (00:47→13:00)
[2017-04-21] MEDS: PHENYLEPHRINE 10 MG in NACL 0.9% 250 ML IV PRN ×3 (00:48→05:54)
--- NOTE | 2017-04-21 00:59 | NUR ---
CHARGE NURSE SPOKE TO DR. RODRIGUEZ FOR LEVOPHED ORDER BEING D/C'D. DR. RODRIGUEZ SAID HE DID NOT D/C IT BUT TO CONTINUE TO TITRATE ORDERED AND ALSO TO TITRATE EMMA-SYNEPHRINE. WILL CARRY OUT.
--- NOTE | 2017-04-21 01:21 | NUR ---
PT EYES CLOSE ABLE TO ANSWER QUESTION CLAIMED CAN YOU LEAVE ME ALONE, EXPLAINED BP STILL LOW AND NEED TO RECHECK PT.
[2017-04-21] MEDS: NACL 0.9% 1,000 ML IV SCH (02:08)
--- NOTE | 2017-04-21 02:21 | NUR ---
PT WANTS TO GET UP PUSHING NURSE HAND CLAIMED I WANT TO GET UP NOW, NURSE STAY WITH PT AND EXPLAINED STILL MONITORING BP
[2017-04-21] MEDS: NOREPINEPHRINE 4 MG in DEXTROSE 5% 250 ML IV PRN ×2 (02:46→05:13)
--- NOTE | 2017-04-21 03:48 | NUR ---
PT CLAIMED CAN I HAVE A SODA, A SIP OF WATER GIVEN
--- NOTE | 2017-04-21 04:20 | NUR ---
PT AAO X1, BP 103/74, NO SOB NOTED AT THIS TIME O2 SAT 97 WITH N/C 3L,
--- NOTE | 2017-04-21 04:50 | NUR ---
OIL DRILLING ENGINEER AT BED SIDE PERFORMING CHEST XRAY. PT TOLERATING WELL.
--- NOTE | 2017-04-21 04:58 | NUR ---
dr. montgomery aware no uirne output but pt with 3x diarrhea
--- NOTE | 2017-04-21 06:03 | NUR ---
PT HAD MODERATE AMOUNT OF LOOSE STOOL WITH FOUL ODOR. ASSISTED WITH INCONTINENCE CARE AND AM CARE. TOLERATED WELL. CONTINUING TO TITRATE LEVOPHED AND NORSYNEPHRINE DRIPS. PT VERBAL AND ALERT AND MAKING CONVERSATIONS WITH THE NURSE BUT NOTED WITH PERIODS OF CONFUSION. NOTED TRYING TO PULL OUT ELECTRODES ON THE CHEST. RE-ENFORCED THE LEADS AND EDUCATED PT NOT TO PULL THOSE. COVERED WELL WITH THE GOWN TO DISTRACT. WILL CONTINUE TO MONITOR.
--- NOTE | 2017-04-21 06:10 | NUR ---
inform dr. montgomery hr 156 with low bp,
--- NOTE | 2017-04-21 06:14 | NUR ---
dr. resendiz at bedside
[2017-04-21] MEDS: BLOOD GLUCOSE MONITORING 1 DEV DEV FS SCH ×2 (06:33→11:44)
[2017-04-21] MEDS: INSULIN LISPRO SLIDING SCALE 100 UNITS/ML VIAL SUBQ PRN (06:34)
[2017-04-21 06:36] LABS: ANION GAP 21.5 (8-16); CARBON DIOXIDE 15.4 mmol/L (21-32); CHLORIDE 107 mmol/L (98-107); GLUCOSE 290 mg/dL (74-106); POTASSIUM 4.9 mmol/L (3.5-5.1); SODIUM SERUM 139 mmol/L (136-145)
[2017-04-21 06:39] LABS: UREA NITROGEN, BLOOD 71 mg/dL (7-18)
[2017-04-21] MEDS ORDERED: NOREPINEPHRINE 16 MG in DEXTROSE 5% 250 ML IV PRN (06:40)
--- NOTE | 2017-04-21 06:40 | NUR ---
CRITICAL LAB RESULTS RECEIVED FROM LAB: SOCIAL WORKER SCHOOL=4 AND BUN=71. DR. PAGAN WAS MADE AWARE. WILL FOLLOW UP WITH ANY ORDERS.
[2017-04-21 07:05] LABS: HEMATOCRIT 31.3 % (36-48); HEMOGLOBIN 10.1 g/dL (12.0-16.0); MEAN CORPUSCULAR HEMOGLOBIN 31 pg (27-31); MEAN CORPUSCULAR HGB CONC 32 g/dL (33-37); MEAN CORPUSCULAR VOLUME 95 fL (80-94); PLATELET COUNT (AUTO) 250 K/uL (140-450); RED BLOOD CELL COUNT(AUTO) 3.29 MIL/uL (4.20-5.40); RED CELL DISTRIBUTION WIDTH 13.6 % (11.6-13.7)
[2017-04-21] MEDS ORDERED: VASOPRESSIN 20 UNITS in NACL 0.9% 250 ML IV SCH (07:15)
--- NOTE | 2017-04-21 07:23 | NUR ---
GAVE REPORT TO MORNING RN. UPDATED ON PT'S CONDITION.
--- NOTE | 2017-04-21 07:24 | NUR ---
LAMONTE FERREIRA TALKING TO DR. PAGAN. DR. PAGAN UPDATED HIM ABOUT PT'S CONDITION.
--- NOTE | 2017-04-21 07:30 | NUR ---
RECEIVED A REPORT FROM MIKE STINSON. UNABLE TO MAKE NEEDS KNOWN AND UNCLEAR SPEECH. WEARING SUNGLASS DUE TO S/P UNKNOWN EYE SURGERY. SLUGGISH PUPILS. EDEMA TO BLE, SKIN WARM TO TOUCH. ST ON THE MONITOR. FLACC 0. ON LEVO AND EMMA DRIP PER PROTOCOL AND ORDERED. DR. PAGAN IN TO SEE PT. WILL CONTINUE TO MONITOR. SAFETY PRECAUTION. BED IN LOW POSITION. Addendum: 04/21/17 at 1438 by Everton Merlos RN ADD TO INITIAL DOCUMENTATION; DARK LANDON COLOR 75ML URINE IN MODI CATHETER BAG NOTED.
[2017-04-21] MEDS ORDERED: INSULIN LISPRO SLIDING SCALE 100 UNITS/ML VIAL SUBQ PRN (07:35)
--- NOTE | 2017-04-21 07:40 | NUR ---
PT IS ON O2 3L/M VIA N/C. NONRESPONSIVE TO VOICE. PER DR. PAGAN, HOLD ALL PO MEDICATIONS AND NPO FOR NOW.
[2017-04-21 08:00] LABS: WHITE BLOOD COUNT (AUTO) 56.1 K/uL (4.8-10.8)
[2017-04-21] MEDS: glyBURIDE 5 MG TAB PO SCH (08:00)
[2017-04-21] MEDS: FERROUS SULFATE 325 MG TABEC PO SCH (08:00)
[2017-04-21 08:02] LABS: LYMPHOCYTES % (MANUAL) 20 % (20-46); METAMYELOCYTES % 6 % (0-0); MONOCYTES % (MANUAL) 3 % (5-12)
--- NOTE | 2017-04-21 08:07 | NUR ---
DR. GAN IN TO SEE PT. WILL FOLLOW UP ON ORDERS
[2017-04-21] MEDS ORDERED: VANCOMYCIN PER PHARMACY MC PRN (08:15)
[2017-04-21] MEDS ORDERED: NACL 0.9% 2,000 ML IV SCH ×2 (08:50→10:50)
--- NOTE | 2017-04-21 08:50 | NUR ---
PT WAS INTUBATED AT BEDSIDE BY DR. BAXTER.
[2017-04-21] MEDS: LACTOBACILLUS RHAMNOSUS GG 1 EACH CAP PO SCH (09:00)
[2017-04-21] MEDS ORDERED: ROCURONIUM 50 MG/5 ML VIAL IV SCH (09:00)
[2017-04-21] MEDS: VALSARTAN PO SCH (09:00)
[2017-04-21] MEDS: TEKTURNA 300 MG PO SCH (09:00)
[2017-04-21] MEDS ORDERED: ETOMIDATE 20 MG/10 ML VIAL IVP SCH (09:00)
[2017-04-21] MEDS: GABAPENTIN 300 MG CAP PO SCH ×2 (09:00→13:00)
[2017-04-21] MEDS: [UNRECOGNIZED DRUG - OTHER] PO SCH (09:00)
[2017-04-21] MEDS: EZETIMIBE 10 MG TAB PO SCH (09:00)
[2017-04-21] MEDS: LACOSAMIDE 100 MG TAB PO SCH (09:00)
[2017-04-21] MEDS: ATORVASTATIN 80 MG TAB PO SCH (09:00)
[2017-04-21] MEDS: ASPIRIN 81 MG TAB.CHEW PO SCH (09:00)
--- NOTE | 2017-04-21 09:00 | NUR ---
PT IS ON ETT TO VENT AND SETTING AT FiO2 32, TV 500, AC 12, PEEP 7
--- NOTE | 2017-04-21 09:15 | NUR ---
PT INTUBATED WITH 7.5 ETT SECURED @24 TEETH/GUMS. ETT PLACEMENT VERIFIED WITH CO2 DETECTOR AND BILATERAL BREATH SOUNDS, ALSO CONFIRMED BY . VENT SETTINGS AC 12, VT 500, PEEP 5 AND FIO2 32%. VENT IS PLUGGED INTO A RED OUTLET WITH ALARMS ON AND FUNCTIONING. AMBU BAG IS PRESENT AT BEDSIDE. WILL CONTINUE TO MONITOR.
--- NOTE | 2017-04-21 09:30 | NUR ---
PT'S FAMILY AT BEDSIDE.
--- NOTE | 2017-04-21 09:35 | NUR ---
DR. PAGAN AWARE OF NO URINE OUTPUT FROM MODI CATHETER AND NEW MODI CATHETER REINSERTED.
[2017-04-21] MEDS: levETIRAcetam 1,000 MG in NACL 0.9% 100 ML IV SCH (09:37)
[2017-04-21] MEDS: ALPHAGAN 0.1% OP SCH ×2 (09:38→13:00)
[2017-04-21] MEDS: EYE OP SCH ×2 (09:38→13:00)
[2017-04-21] MEDS: DORZOLAMIDE OP SCH (09:39)
[2017-04-21] MEDS: TIMOLOL OP SCH (09:39)
--- NOTE | 2017-04-21 09:44 | NUR ---
MEDICATION ADMINISTERED ORDERED. TOLERATED WELL.
[2017-04-21] MEDS ORDERED: MEROPENEM 1,000 MG in NACL 0.9% 100 ML IV SCH (10:00)
[2017-04-21] MEDS ORDERED: VANCOMYCIN 1,500 MG in DEXTROSE 5% 250 ML IV SCH (10:30)
--- NOTE | 2017-04-21 10:30 | NUR ---
NGT INSERTED ORDERED AND WILL VERIFY THE PLACEMENT OF NGT.
[2017-04-21] MEDS ORDERED: PHENYLEPHRINE 40 MG in NACL 0.9% 250 ML IV PRN (11:00)
--- NOTE | 2017-04-21 11:00 | NUR ---
STILL NO URINE OUTPUT IN THE MODI CATHETER BAG.
[2017-04-21] MEDS ORDERED: SODIUM BICARBONATE 8.4% PFS 50 MEQ/50 ML SYR IVP SCH (11:05)
--- NOTE | 2017-04-21 11:28 | NUR ---
DR. ENGLE IN TO SEE PT. BICARBONATE GIVEN ORDERED. WILL CONTINUE TO MONITOR AND FOLLOW UP ON ORDERS
--- NOTE | 2017-04-21 11:35 | NUR ---
FIO2 INCREASED TO 40%. WILL CONTINUE TO MONITOR.
--- NOTE | 2017-04-21 11:38 | NUR ---
PEEP DECREASED TO 5cmH20 DUE TO DECREASING BP. NURSE TUNG AWARE.
--- NOTE | 2017-04-21 11:47 | NUR ---
PT'S CODE STATUS CHANGED TO DNR PER FAMILY REQUEST.
[2017-04-21] MEDS ORDERED: VANCOMYCIN 500 MG VIAL PO SCH (12:00)
[2017-04-21 12:56] LABS: HEMATOCRIT 31.5 % (36-48); MEAN CORPUSCULAR HEMOGLOBIN 31 pg (27-31); MEAN CORPUSCULAR HGB CONC 32 g/dL (33-37); MEAN CORPUSCULAR VOLUME 96 fL (80-94); PLATELET COUNT (AUTO) 171 K/uL (140-450); RED BLOOD CELL COUNT(AUTO) 3.29 MIL/uL (4.20-5.40); RED CELL DISTRIBUTION WIDTH 14.3 % (11.6-13.7)
[2017-04-21] MEDS ORDERED: PIPER/TAZO 3.375GM/D5W PREMIX 50 ML IV SCH (13:00)
[2017-04-21] MEDS ORDERED: PIPER/TAZO 2.25GM/D5W PREMIX 50 ML IV SCH (13:00)
[2017-04-21] MEDS ORDERED: CHOLESTYRAMINE 4 GM/9 GM PKT NG SCH ×2 (13:00)
--- NOTE | 2017-04-21 13:14 | NUR ---
[facility] NOTIFIED. REFERRAL NUMBER [id number]. SPOKE TO BERNA, AWAITING COORDNATOR CALL BACK.
--- NOTE | 2017-04-21 13:26 | NUR ---
VENT CHECK COMPLETED, NO CHANGES MADE TO VENT AT THIS TIME. NURSE TUNG AND FAMILY ARE BEDSIDE. WILL CONTINUE TO MONITOR.
--- NOTE | 2017-04-21 13:31 | NUR ---
CALLED [facility] INFORMED TO CALL WITH CARDIAC TIME OF . CASE #: [id number] Addendum: 04/21/17 at 1333 by Shabana Beverly RN TARAS WITH G[facility]
--- NOTE | 2017-04-21 13:37 | NUR ---
DR. PAGAN AND DR. PORTILLO NOTIFIED. PT MAXED OUT ON ALL THREE PRESSORS. BP , P 85. FAMILY REQUESTING TO SPEAK TO DR. WATSON AT BEDSIDE.
[2017-04-21 13:40] LABS: ANION GAP 19.7 (8-16); CARBON DIOXIDE 15.3 mmol/L (21-32); CHLORIDE 113 mmol/L (98-107); GLUCOSE 237 mg/dL (74-106); SODIUM SERUM 143 mmol/L (136-145)
--- NOTE | 2017-04-21 13:40 | NUR ---
RECEIVED A CALL FROM LAB REGARDING CRITICAL LAB RESULT OF WBC 66.8. DR. PORTILLO MADE AWARE OF IT. WILL FOLLOW UP ON ORDERS
[2017-04-21 13:44] LABS: WHITE BLOOD COUNT (AUTO) 66.8 K/uL (4.8-10.8)
[2017-04-21] MEDS ORDERED: DOPamine 400 MG/D5W PREMIX 250 ML IV SCH (13:45)
[2017-04-21 13:46] LABS: CREATININE 4.1 mg/dL (0.6-1.3); EOSINOPHILS % (MANUAL) 2 % (0-4); LYMPHOCYTES % (MANUAL) 10 % (20-46); METAMYELOCYTES % 12 % (0-0); MONOCYTES % (MANUAL) 12 % (5-12); MYELOCYTES % 8 % (0-0); UREA NITROGEN, BLOOD 66 mg/dL (7-18)
[2017-04-21 13:47] LABS: CORRECTED WHITE BLOOD COUNT 60.7 K/uL (4.5-11.0)
--- NOTE | 2017-04-21 13:50 | NUR ---
PT'S FAMILY AT BEDSIDE AND UPDATED OF PT'S CURRENT CONDITION BY DR. PORTILLO
--- NOTE | 2017-04-21 13:58 | NUR ---
PER DR. PORTILLO, HOLD ALL PO MEDICATIONS.
--- NOTE | 2017-04-21 14:03 | NUR ---
PER DANII CAMPA TO NOT GIVE FLAGYL.
--- NOTE | 2017-04-21 15:03 | NUR ---
PT SUCTIONED OBTAINED SMALL AMOUNT OF BROWN COLORED THICK SECRETIONS, AIRWAY IS PATENT. NO BITING OR KINKING OF ETT AT THIS TIME. WILL CONTINUE TO MONITOR.
--- NOTE | 2017-04-21 15:08 | NUR ---
SUCTIONED OUT WITH SMALL AMOUNT OF COFFEE BROWN COLOR AND DECREASING HR TO 47. REPORTED DR[address] PAGAN. WILL FOLLOW UP ON ORDERS
--- NOTE | 2017-04-21 15:13 | NUR ---
PT'S FAMILY AT BEDSIDE AT THIS TIME.
--- NOTE | 2017-04-21 15:26 | NUR ---
PER FAMILY, THEY ARE READY TO START COMFORT CARE AND D/C ALL PRESSORS. DR. PAGNA NOTIFIED. AWAITING ORDERS.
--- NOTE | 2017-04-21 15:35 | NUR ---
TIME OF CALLED BY DR. PAGAN. FAMILY AT BEDSIDE. [facility] NOTIFIED. PT IS NOT A CANDIDATE FOR [employer]ATION.
--- NOTE | 2017-04-21 15:35 | NUR ---
PT EXTUBATED BY REQUEST OF THE FAMILY. BEDSIDE AND AWARE OF THE REQUEST. NURSE ISAAK AWARE.
--- NOTE | 2017-04-21 15:53 | NUR ---
CALLED AND REPORTED TO [facility](SPOKE TO YUE) FOR THE .
--- NOTE | 2017-04-21 16:43 | NUR ---
SPOKE TO ANEUDY ONTIVEROS. PT IS NOT A BELL SPINNER SOUSAPHONES'S CASE. BODY RELEASED TO HOSPITAL.
--- NOTE | 2017-04-21 17:46 | NUR ---
MORTUARY AT BEDSIDE. POST MORTEM CARE PROVIDED. CENTRAL LINES AND PERIPHERAL IV REMOVED. CANNULA INTACT. LEFT ON GURNEY WITH MORTUARY.
[2017-04-21] MEDS ORDERED: MEROPENEM 500 MG in NACL 0.9% 50 ML IV SCH (21:00)
[2017-04-22] MEDS ORDERED: PHARMACY COMMENTS MC SCH (09:00)
== END 2017-04-21 15:35 | disposition expired | DRG 871 ==
LOC: MED 23:05 → MTU 04-18 04:39 → MIC 04-20 18:45
PROVIDERS: ADMIT Student in an Organized Health Care Education/Training Program; ATTEND Student in an Organized Health Care Education/Training Program
PROC: 02HV33Z Insertion of Infusion Device into Superior Vena Cava, Percutaneous Approach (ICD-10-PCS; 2017-04-20)
PROC: 5A1935Z Respiratory Ventilation, Less than 24 Consecutive Hours (ICD-10-PCS; principal; 2017-04-21)
PROC: 0BH17EZ Insertion of Endotracheal Airway into Trachea, Via Natural or Artificial Opening (ICD-10-PCS; 2017-04-21)
DX: A41.9 Sepsis, unspecified organism (principal); G93.41 Metabolic encephalopathy; J96.01 Acute respiratory failure with hypoxia; N17.0 Acute kidney failure with tubular necrosis; R65.21 Severe sepsis with septic shock; D68.59 Other primary thrombophilia; E11.22 Type 2 diabetes mellitus with diabetic chronic kidney disease; I50.43 Acute on chronic combined systolic (congestive) and diastolic (congestive) heart failure; E44.0 Moderate protein-calorie malnutrition; F02.81 Dementia in other diseases classified elsewhere, unspecified severity, with behavioral disturbance; N39.0 Urinary tract infection, site not specified; Z68.42 Body mass index [BMI] 45.0-49.9, adult; I46.9 Cardiac arrest, cause unspecified; E11.42 Type 2 diabetes mellitus with diabetic polyneuropathy; Z79.82 Long term (current) use of aspirin; G30.9 Alzheimer's disease, unspecified; E78.5 Hyperlipidemia, unspecified; G40.909 Epilepsy, unspecified, not intractable, without status epilepticus; H40.9 Unspecified glaucoma; E83.42 Hypomagnesemia; E11.65 Type 2 diabetes mellitus with hyperglycemia; D50.9 Iron deficiency anemia, unspecified; E11.51 Type 2 diabetes mellitus with diabetic peripheral angiopathy without gangrene; I12.9 Hypertensive chronic kidney disease with stage 1 through stage 4 chronic kidney disease, or unspecified chronic kidney disease; N18.9 Chronic kidney disease, unspecified; B96.89 Other specified bacterial agents as the cause of diseases classified elsewhere; E66.01 Morbid (severe) obesity due to excess calories; E83.51 Hypocalcemia; Z79.2 Long term (current) use of antibiotics; Z79.899 Other long term (current) drug therapy; Z66 Do not resuscitate
CPT/HCPCS: 31500; 36415; 36600; 70450; 71010; 76770; 76856; 80048; 80053; 80173; 80305; 81001; 82140; 82150; 82803; 82948; 83036; 83605; 83690; 83735; 83880; 84100; 84436; 84439; 84443; 84479; 84484; 85025; 85610; 85730; 87040; 87045; 87077; 87081; 87086; 87186; 89055; 93005; 93880; 93925; 93970; 94002; 96361; 96365; 99285; J1170; J1265; J1642; J1644; J1815; J1953; J1956; J2185; J2370; J2543; J3370; J3475; J3490; J7030; J7042; J7060; Q0092